=== PATIENT | male | born 1980 | race African-American/Black ===

== ENCOUNTER 2016-06-12 04:46 | Inpatient (IN) ==
[2016-06-03 10:42] LABS: Basophils % 0.4 % (0.0-0.8); Eosinophils # 0.1 10*3/uL (0.0-0.87); Eosinophils % 1.6 % (0.00-10.9); Hematocrit 41.3 VOL% (42.0-52.0); Hemoglobin 13.6 GM/DL (14.0-18.0); Immature Granulocytes % 0.4 %; Immature Granulocytes Absolute 0.02 #; Lymphocytes # 2.6 10*3/uL (1.4-4.0); Lymphocytes % 46.3 % (21.2-54.2); Mean Corpuscular HGB Conc 32.9 GM/DL (32-36); Mean Corpuscular Hemoglobin 26 PG (27-34); Mean Corpuscular Volume 79.3 FL (87-102); Monocytes # 0.6 10*3/uL (0.11-0.8); Monocytes % 10.8 % (1.7-12.7); Neutrophils # 2.3 10*3/uL (1.4-7.4); Neutrophils % 40.5 % (38.7-73.9); Platelet Count 198 T/CUMM (130-400); Red Blood Count 5.21 MC/CUMM (3.8-5.5); Red Cell Distribution Width 15.8 % (9.3-17.3); White Blood Count 5.6 T/CUMM (4-12)
[2016-06-03 10:52] LABS: INR 1.1; PT Patient Result 11.5 SECS; Partial Thromboplastin Time 28.3 SECS (0-40)
--- NOTE | 2016-06-03 10:54 | EKG Report ---
Stationary ECG Study [facility] Test Date: 06/03/2016 10:53:37 AM Pat Name: PANCHO WANG Department: Room: Gender: M Primary Special Education Teacher: NEEL VASQUEZ [birth year] : 1980 Requested by: Erick Kan Order Number: [id number] Reading MD: THOM PACHECO Intervals [place] Rate: 65 P: 60 CA: 138 QRS: 30 QRSD: 90 T: -57 QT: 384 QTc: 396 Interpretive Statements SINUS RHYTHM LEFT VENTRICULAR HYPERTROPHY AND ST-T CHANGE POSSIBLE INFERIOR MYOCARDIAL INFARCTION, OF INDETERMINATE AGE Electronically Signed On 06-03-16 16:57:07 CDT by THOM PACHECO [id number]
[2016-06-03 11:01] LABS: Albumin 3.8 G/DL (3.4-5.0); Bilirubin,Total 0.4 MG/DL (0.2-1.0); Osmolality,Calculated 276.4 MOS/KG (273-304); Potassium 3.9 MMOL/L (3.5-5.1); Total Protein 7.2 G/DL (6.4-8.3)
[2016-06-03 11:08] LABS: Apearance,Urine CLEAR (Clear); Bilirubin,Urine Negative (Negative); Blood, Urine Negative (Negative); Glucose,Urine (UA) Negative (Negative); Ketones,Urine 5 mg/dL (Negative); Mucus,Urine Occasional /LPF (Occasional); Nitrite,Urine Negative (Negative); Protein,Urine Negative; RBC,Urine <1 /HPF (0-4); Squamous Epithelial Cell,Urine Occasional /HPF (0-10); Urine Specific Gravity 1.024 (1.001-1.035); Urine Urobilinogen < 2.0 EU/DL (0.2-1.0); WBC,Urine 1 /HPF (0-6)
[2016-06-03 11:09] LABS: Urine Color Dark yellow (Yellow)
--- NOTE | 2016-06-03 13:16 | XRay Report ---
XR chest 2V Indication: Preop Comparison: None. Technique: PA and lateral chest x-ray was performed. Findings: The heart size is within normal limits. The mediastinal contour demonstrates no significant abnormality. The lungs are clear. Bones and soft tissues demonstrate no acute abnormality. Impression: 1. No active cardiopulmonary disease. 06/03/2016 1:14 PM PROCEDURE INTERPRETED AT [facility] DEPARTMENT OF RADIOLOGY Final Report Signed by: Dr. José Miguel Barrios
[2016-06-12] MEDS ORDERED: ceFAZolin 1,000 MG VIAL ONE (05:49)
[2016-06-12] MEDS ORDERED: VANCOMYCIN 1,000 MG VIAL ONE (05:49)
[2016-06-12] MEDS ORDERED: SODIUM CHLORIDE 0.9% 100 ML IV ONE (05:49)
[2016-06-12] MEDS ORDERED: VANCOMYCIN INJ 1,000 MG in SODIUM CHLORIDE 0.9% 250 ML IV ONE ×2 (06:00→18:54)
--- NOTE | 2016-06-12 06:38 | History and Physical Update ---
History and Physical Update - History and Physical H&P was reviewed, the patient examined and there: are no changes in the patients condition since last H&P was completed.
[2016-06-12] MEDS ORDERED: FAMOTIDINE 20 MG TABLET PO ONE (06:59)
[2016-06-12] MEDS ORDERED: DIAZEPAM 5 MG TABLET PO ONE (06:59)
[2016-06-12] MEDS ORDERED: LACTATED RINGERS 1,000 ML IV SCH (07:00)
[2016-06-12] MEDS ORDERED: FAMOTIDINE 20 MG TABLET ONE (07:40)
[2016-06-12] MEDS ORDERED: DIAZEPAM 5 MG TABLET ONE (07:40)
[2016-06-12] MEDS ORDERED: BACITRACIN OINT 0.9 GM PACK TOP ONE (08:47)
[2016-06-12] MEDS ORDERED: TRANEXAMIC ACID 1,000 MG/10 ML VIAL IV ONE (08:55)
[2016-06-12] MEDS ORDERED: PROPOFOL 200 MG/20 ML VIAL IV ONE (09:08)
[2016-06-12] MEDS ORDERED: LIDOCAINE 100 MG/5 ML SYRINGE ONE (09:08)
[2016-06-12] MEDS ORDERED: AMITRIPTYLINE 50 MG TABLET PO PRN (10:51)
[2016-06-12] MEDS ORDERED: diphenhydrAMINE CAP 25 MG CAPSULE PO PRN (10:52)
[2016-06-12] MEDS ORDERED: oxyCODONE IR 5 MG TABLET PO PRN (10:52)
[2016-06-12] MEDS ORDERED: MAGNESIUM HYDROXIDE SUSP 30 ML UDCUP PO PRN (10:52)
[2016-06-12 10:53] LABS: Apearance,Urine CLEAR (Clear); Bilirubin,Urine Negative (Negative); Blood, Urine Negative (Negative); Glucose,Urine (UA) Negative (Negative); Ketones,Urine Negative (Negative); Mucus,Urine Occasional /LPF (Occasional); Nitrite,Urine Negative (Negative); Protein,Urine Negative; RBC,Urine 1 /HPF (0-4); Squamous Epithelial Cell,Urine Occasional /HPF (0-10); Urine Color Straw (Yellow); Urine Urobilinogen < 2.0 EU/DL (0.2-1.0); WBC,Urine <1 /HPF (0-6)
--- NOTE | 2016-06-12 11:07 | Operative Note ---
Date of procedure: 06/12/16 Procedure: DIAGNOSIS: Left hip avascular necrosis PROCEDURE: Left total hip arthroplasty (CPT#65110) SURGEON: Jarocho ASST: Aleks Bull ANESTHESIA: Spinal PROCEDURE and FINDINGS: After adequate anesthesia was induced, the patient was placed in lateral decubitus position. Left lower extremities prepped and draped in usual sterile fashion. Posteriolateral approach to the hip was made. Skin, subcutaneous tissue and deep fascia was incised longitudinally. Gluteus msita muscle belly was split in line with its fibers. Piriformis, external rotators and capsule were taken down as a single layer as an inverted L shaped capsulotomy. Hip was dislocated. Templated femoral neck cut was made. Acetabulum was prepared by sequentially reaming to 53 mm. A 54 mm Continuum acetabular shell was press-fit with excellent stability. 1 6.5 millimeter screw was placed with an excellent bite. 32 mm elevated Longevity liner was placed with a dome hole plug. Femur was prepared sequentially with the box osteotome, canal finder and sequential broaches to 12. Components were trialed. A size 12 Versys fiber metal tapered stem was press-fit. A 32+0 mm head was placed. The component was stable posteriorly and anteriorly. Capsule and external rotators were repaired with #5 Tycron. Deep fascia was closed with 0 Vicryl uolqyp-zz-rnpcy suture. Subcutaneous tissue was closed deep with a 2-0 Vicryl runner and superficially with 3-0 interrupted buried sutures. Skin was closed with italia. Bacitracin and a sterile occlusive dressing was applied. Surgeon / Physician: Erick Avendaño Jr. Results - Labs CBC & BMP: 06/03/16 10:36 06/03/16 10:36 Discharge Plan - Discharge Medications No Action Amitriptyline [Elavil] 50 mg PO BEDTIME PRN PRN Reason: Sleep Gabapentin [Gabapentin] 1 tablet PO TID Tramadol HCl [Tramadol HCl] 1 tablet PO DIRECTED Meloxicam 15 mg PO DIRECTED - Follow Up or Referral - Forms/Instructions
[2016-06-12] MEDS ORDERED: MIDAZOLAM 2 MG/2 ML VIAL ONE (11:10)
[2016-06-12] MEDS ORDERED: fentaNYL 100 MCG/2 ML VIAL ONE (11:11)
[2016-06-12] MEDS ORDERED: ACETAMINOPHEN 1,000 MG/100 ML VIAL IV ONE (11:11)
[2016-06-12] MEDS: MORPHINE 2 MG/1 ML SYRINGE IV PRN ×2 (13:32→14:47)
[2016-06-12] MEDS ORDERED: MORPHINE 2 MG/1 ML SYRINGE IV ONE (14:39)
[2016-06-12] MEDS ORDERED: NALOXONE 0.4 MG/ML VIAL IV PRN (14:39)
--- NOTE | 2016-06-12 14:42 | Orthopedic Progress Note ---
Orthopedics - Subjective Interval history: Mr Márquez is uncomfortable and complaining of pain. Left lower extremity shows that his dressing is clean, dry and intact. His left lower extremities neurovascularly unchanged. Plan: Bolus morphine 1 now and add a morphine [employer]. Exam - Constitutional Vitals: Period Temp Pulse Resp BP Sys/Fofana Pulse Ox Last 24 Hr 97.4 F-98.1 F 47-57 16-20 99-126/68-91 98-100 Results - Labs CBC & BMP: 06/03/16 10:36 06/03/16 10:36
[2016-06-12] MEDS: KETOROLAC 30 MG/1 ML VIAL IV SCH ×3 (14:44→20:23)
--- NOTE | 2016-06-12 14:53 | XRay Report ---
XR hip 1V LT Indication: Arthroplasty Comparison: 13 January 2016 Findings: Arthroplasty alignment appears within normal limits. No periprosthetic fracture seen. Impression: Hip arthroplasty as described above. PROCEDURE INTERPRETED AT [facility] DEPARTMENT OF RADIOLOGY Final Report Signed by: Dr. Loki Bain
[2016-06-12] MEDS ORDERED: MORPHINE PCA 30 MG/30 ML SYRINGE IV SCH (15:00)
--- NOTE | 2016-06-12 16:37 | Anesthesia Post-Op ---
Anesthesia Post OP - Post Ansesthetic Evaluation Patient seen in post op: Yes Resp: within normal limits CV: within normal limits Mental: within normal limits Temp: within normal limits [id number]-Ylwqovtmj: within normal limits Nausea and Vomiting: within normal limits Pain: within normal limits
[2016-06-12] MEDS: ceFAZolin 2,000 MG in PREMIX 1 EACH IV SCH ×2 (17:26→21:58)
[2016-06-12] MEDS: LACTATED RINGERS 1,000 ML IV SCH ×2 (17:32→21:38)
[2016-06-12] MEDS: ACETAMINOPHEN 500 MG TABLET PO SCH ×2 (19:36→20:27)
[2016-06-12] MEDS: GABAPENTIN 300 MG CAPSULE PO SCH ×2 (19:37→20:26)
[2016-06-12] MEDS: DOCUSATE SODIUM 100 MG CAPSULE PO SCH (20:27)
[2016-06-13] MEDS: KETOROLAC 30 MG/1 ML VIAL IV SCH (02:09)
[2016-06-13] MEDS: ACETAMINOPHEN 500 MG TABLET PO SCH ×2 (02:12→09:06)
[2016-06-13] MEDS: FONDAPARINUX 2.5 MG/0.5 ML SYRINGE SUBCUT SCH (04:23)
[2016-06-13] MEDS: LACTATED RINGERS 1,000 ML IV SCH (06:12)
[2016-06-13 06:14] LABS: Basophils % 0.2 % (0.0-0.8); Eosinophils # 0.1 10*3/uL (0.0-0.87); Eosinophils % 1.1 % (0.00-10.9); Hematocrit 34.6 VOL% (42.0-52.0); Hemoglobin 11.5 GM/DL (14.0-18.0); Immature Granulocytes % 0.5 %; Immature Granulocytes Absolute 0.04 #; Lymphocytes # 2.2 10*3/uL (1.4-4.0); Lymphocytes % 26.4 % (21.2-54.2); Mean Corpuscular HGB Conc 33.2 GM/DL (32-36); Mean Corpuscular Hemoglobin 26 PG (27-34); Mean Corpuscular Volume 77.8 FL (87-102); Mean Platelet Volume 11.1 FL (9.6-12.0); Monocytes % 11.8 % (1.7-12.7); Platelet Count 159 T/CUMM (130-400); Red Blood Count 4.45 MC/CUMM (3.8-5.5); Red Cell Distribution Width 15.5 % (9.3-17.3); White Blood Count 8.3 T/CUMM (4-12)
[2016-06-13 06:51] LABS: Calcium 8.9 MG/DL (8.5-10.1); Osmolality,Calculated 277.4 MOS/KG (273-304); Potassium 3.5 MMOL/L (3.5-5.1)
--- NOTE | 2016-06-13 07:36 | Orthopedic Progress Note ---
Orthopedics - Subjective Interval history: Comfortable. Mr. Márquez would like the Dean out. Dressing moderate serosanguineous drainage. Left lower extremity neurovascularly intact. Plan: Mobilize with physical therapy. Discontinue IV fluids, STEMHOLE BORER AND TOPPER and Dean catheter. Hold Arixtra for wound drainage. Exam - Constitutional Vitals: Period Temp Pulse Resp BP Sys/Fofana Pulse Ox Last 24 Hr 97.4 F-100.2 F 47-96 16-20 99-151/68-94 97-100 Results - Labs CBC & BMP: 06/13/16 05:03 06/13/16 05:03
[2016-06-13] MEDS: GABAPENTIN 300 MG CAPSULE PO SCH ×3 (09:05→22:38)
[2016-06-13] MEDS: DOCUSATE SODIUM 100 MG CAPSULE PO SCH ×2 (09:06→22:39)
[2016-06-13] MEDS: oxyCODONE IR 5 MG TABLET PO PRN ×2 (14:04→19:12)
[2016-06-13] MEDS: CELECOXIB 200 MG CAPSULE PO SCH (15:54)
[2016-06-13] MEDS: MORPHINE 2 MG/1 ML SYRINGE IV PRN (22:39)
[2016-06-14] MEDS ORDERED: KETOROLAC 30 MG/1 ML VIAL IV ONE (00:24)
[2016-06-14 01:01] LABS: Basophils % 0.2 % (0.0-0.8); Eosinophils # 0.1 10*3/uL (0.0-0.87); Eosinophils % 1.2 % (0.00-10.9); Hemoglobin 11.9 GM/DL (14.0-18.0); Immature Granulocytes % 0.6 %; Immature Granulocytes Absolute 0.06 #; Lymphocytes # 2.2 10*3/uL (1.4-4.0); Lymphocytes % 21.9 % (21.2-54.2); Mean Corpuscular Hemoglobin 26 PG (27-34); Mean Corpuscular Volume 76.8 FL (87-102); Mean Platelet Volume 10.8 FL (9.6-12.0); Monocytes # 1.1 10*3/uL (0.11-0.8); Monocytes % 10.7 % (1.7-12.7); Neutrophils # 6.5 10*3/uL (1.4-7.4); Neutrophils % 65.4 % (38.7-73.9); Platelet Count 166 T/CUMM (130-400); Red Blood Count 4.56 MC/CUMM (3.8-5.5); Red Cell Distribution Width 15.3 % (9.3-17.3); White Blood Count 9.9 T/CUMM (4-12)
[2016-06-14 01:17] LABS: Troponin I Only < 0.015 NG/ML (0.00-0.045)
[2016-06-14] MEDS: oxyCODONE IR 5 MG TABLET PO PRN (04:09)
--- NOTE | 2016-06-14 05:28 | Event Note ---
Night hospitalist brief rapid response note Responded to heart alert paged overhead to Mr. Márquez. He had complained of some chest discomfort. Upon my arrival he was lying in bed with appropriate mentation and stable vital signs. Noted that he is in the hospital for a hip procedure. EKG personally reviewed without ST elevation [place], he does have some benign early repolarization. Chest x-ray unremarkable. Upon questioning the patient sounds like he complains more of indigestion with a pressure in his chest that makes him feel like he needs to burp. He has no significant risk factors for coronary disease. Remain on the floor with remote cardiac monitoring. Maalox for indigestion. Toradol shot given for hip discomfort.
--- NOTE | 2016-06-14 08:02 | Orthopedic Progress Note ---
Orthopedics - Subjective Interval history: Mr. Márquez is currently comfortable and has no complaints. He is standing and working with physical therapy. He was seen during the event coordinator by the night hospitalist for possible chest discomfort which was felt to be indigestion. His dressing has mild to moderate serosanguineous drainage. It is much less than yesterday. He is neurovascularly intact. He is currently working very well with physical therapy. Continue physical therapy. Start Arixtra tomorrow. Encouraged protein intake. Probable transfer to [facility] tomorrow. Exam - Constitutional Vitals: Period Temp Pulse Resp BP Sys/Fofana Pulse Ox Last 24 Hr 98.1 F-98.7 F 75-98 18-20 122-145/82-94 96-99 Results - Labs CBC & BMP: 06/14/16 00:37 06/13/16 05:03
[2016-06-14] MEDS: CELECOXIB 200 MG CAPSULE PO SCH (08:28)
[2016-06-14] MEDS: GABAPENTIN 300 MG CAPSULE PO SCH ×3 (08:29→21:39)
[2016-06-14] MEDS: DOCUSATE SODIUM 100 MG CAPSULE PO SCH ×2 (08:29→21:39)
--- NOTE | 2016-06-14 08:58 | EKG Report ---
Stationary ECG Study [facility] Test Date: 06/14/2016 12:20:58 AM Pat Name: PANCHO WANG Department: Room: 319 Gender: M Unix Engineer: : 1980 Requested by: Griffin Quintero Order Number: [id number] Reading MD: SALENA GARCIA Intervals [place] Rate: 75 P: 53 MO: 154 QRS: 25 QRSD: 104 T: 30 QT: 363 QTc: 392 Interpretive Statements SINUS RHYTHM At 75 bpm NONSPECIFIC T-WAVE ABNORMALITY Electronically Signed On 06-15-16 16:49:46 CDT by SALENA GARCIA [email or web address]
--- NOTE | 2016-06-14 09:17 | XRay Report ---
Referring Physician: Griffin Delaney MD Exam: XR chest 1V portable Date: June 14, 2016 at 12:11 AM Reason: Chest pain Comparison: Chest 2 views June 03, 2016 Findings: The cardiac silhouette is normal in size. There is minimal atelectasis within the left midlung zone. No pneumothorax or pleural effusion is identified. No acute osseous process is seen. Impression: Minimal atelectasis within the left midlung zone. PROCEDURE INTERPRETED AT [facility] DEPARTMENT OF RADIOLOGY Final Report Signed by: Dr. Arthur Batres
[2016-06-15 06:42] LABS: Basophils % 0.3 % (0.0-0.8); Eosinophils # 0.2 10*3/uL (0.0-0.87); Eosinophils % 2.5 % (0.00-10.9); Hematocrit 35.5 VOL% (42.0-52.0); Hemoglobin 11.6 GM/DL (14.0-18.0); Immature Granulocytes % 0.6 %; Immature Granulocytes Absolute 0.05 #; Lymphocytes # 2.3 10*3/uL (1.4-4.0); Lymphocytes % 29.4 % (21.2-54.2); Mean Corpuscular HGB Conc 32.7 GM/DL (32-36); Mean Corpuscular Hemoglobin 26 PG (27-34); Mean Corpuscular Volume 78.9 FL (87-102); Mean Platelet Volume 11.1 FL (9.6-12.0); Monocytes # 0.9 10*3/uL (0.11-0.8); Monocytes % 11.6 % (1.7-12.7); Neutrophils # 4.3 10*3/uL (1.4-7.4); Neutrophils % 55.6 % (38.7-73.9); Platelet Count 171 T/CUMM (130-400); Red Cell Distribution Width 15.8 % (9.3-17.3); White Blood Count 7.7 T/CUMM (4-12)
--- NOTE | 2016-06-15 08:48 | Discharge Summary ---
Hospital Course - Hospital Course Hospital Course: Mr. Márquez was admitted after undergoing an uncomplicated left total hip arthroplasty for avascular necrosis. He received perioperative DVT and antimicrobial prophylaxis. He received physical therapy. 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 His dressing today is clean, dry and intact. His left lower extremities neurovascularly intact. Discharge Plan - Discharge Data Disposition: Disch/Xfer to Snf Condition at Discharge: Stable Discharge Diet: advance to your usual diet Hygiene: may shower Weight Bearing at Discharge: weight bear as tolerated Driving: not until seen by doctor - Discharge Medications New Celecoxib [Celebrex] 200 mg PO DAILY capsule Docusate Sodium Cap [Colace Cap] 100 mg PO BID capsule Fondaparinux [Arixtra] 2.5 mg SUBCUT Q24H syringe HYDROcodone/ACETAMIN 7.5-325 [[place] 7.5-325] 2 tablet PO Q4H PRN #0 tablet PRN Reason: Moderate Pain unrelieved by 1 HYDROcodone/ACETAMIN 7.5-325 [[place] 7.5-325] 1 tablet PO Q4H PRN #0 tablet PRN Reason: Pain Moderate (4-7) Continue Amitriptyline [Elavil] 50 mg PO BEDTIME PRN PRN Reason: Sleep Gabapentin 300 mg PO TID No Action Tramadol HCl [Tramadol HCl] 1 tablet PO Q8H PRN PRN Reason: Pain Meloxicam 15 mg PO DAILY - Follow Up or Referral - Forms/Instructions Additional Discharge Instructions: Posterior hip precautions for 3 months. Daily dry dressing changes. Arrange for walker and bedside commode for home use. Wear TERRA hose for 1 month. Follow-up appointment in 4 weeks. Discontinue italia and Steri-Strip wound on June 24, 2016. Prescription for [place] 7.5 with 30 tablets was written. Stop Arixtra when discharged from [facility], then take aspirin 325 mg by mouth daily for 14 day. Exam - Constitutional Vitals: Period Temp Pulse Resp BP Sys/Fofana Pulse Ox Last 24 Hr 97.7 F-99.7 F 79-94 16-20 125-156/76-95 96-100 Discharge Results Labs on day of discharge: Labs from last 24 hours 06/15/16 05:16 WBC 7.7 RBC 4.50 Hgb 11.6 L Hct 35.5 L MCV 78.9 L MCH 26 L MCHC 32.7 RDW 15.8 Plt Count 171 MPV 11.1 Neut % (Auto) 55.6 Lymph % (Auto) 29.4 Mathews % (Auto) 11.6 Eos % (Auto) 2.5 Baso % (Auto) 0.3 Neut # (Auto) 4.3 Lymph # (Auto) 2.3 Mathews # (Auto) 0.9 H Eos # (Auto) 0.2 Baso # (Auto) 0.0 Immature Gran % 0.6 Nucleated RBC % 0.0 Immature Gran # 0.05 Nucleated RBCs # 0.00 DS: Provider Date of admission: 06/12/16 04:46 Primary care physician: Erick Avendaño Jr., Attending physician on admission: Erick Avendaño Jr., Consults: 06/12/16 10:53 Consult to Case Mgmt/Social Srvs [CONS] Routine Reason for Case Mgmt/Social Srvs: Rehab Home Health Equipment Consult Comment: Bedside Commode, CPM, Walker Consult to Occupational Therapy [CONS] Routine Reason for Occupational Therapy: Evaluate and Treat Consult Comment: ADL's Consult to Physical Therapy [CONS] Routine Reason for Physical Therapy: Evaluate and Treat Gait Training Start Therapy: Today Consult Comment: wbat, hip precautions Discharging clinician: Erick Avendaño Jr., Expected date of discharge: 06/15/16
[2016-06-15] MEDS: DOCUSATE SODIUM 100 MG CAPSULE PO SCH ×2 (09:06→21:48)
[2016-06-15] MEDS: CELECOXIB 200 MG CAPSULE PO SCH (09:06)
[2016-06-15] MEDS: GABAPENTIN 300 MG CAPSULE PO SCH ×3 (09:06→21:47)
--- NOTE | 2016-06-15 11:26 | Pathology Report from [facility] ---
ACCESSION # : [id number] PATIENT NAME : Pancho Wang ORDERING DR : RUBY VASQUEZ MD CLINICAL HX: Avascular necrosis left hip POST-OP DX: Same SPECIMEN INFO: Left hip bone and tissue GROSS DESCRIPTION: The specimen is received in formalin labeled with the patient 's name and consists of a femoral head measuring 4.8 x 4.8 x 2.6 cm. The articular surface is predominately smooth and red-hopkins with no subchondral eburnation seen. Cut surface is firm with no softening appreciated. Received separately in the container are multiple fragments of bone and cartilage measuring 10.0 x 3.0 cm. Assessment Technician tissue submitted in one cassette following decalcification. DIAGNOSIS FOR PANCHO WANG: FEMORAL HEAD, LEFT: Consistent with avascular necrosis. SERVICE DATE: 06/12/2016 REPORT DATE: 06/15/2016 PATHOLOGIST: Guilherme Magallanes III, M.D. MTDD
[2016-06-15] MEDS ORDERED: BISACODYL 10 MG SUPP RECTAL PRN (11:48)
[2016-06-15] MEDS: MORPHINE 2 MG/1 ML SYRINGE IV PRN (18:29)
[2016-06-16] MEDS: FONDAPARINUX 2.5 MG/0.5 ML SYRINGE SUBCUT SCH (05:00)
--- NOTE | 2016-06-16 07:13 | Orthopedic Progress Note ---
Orthopedics - Subjective Interval history: Comfortable. Is currently waiting on insurance approval for TMR. Scant serosanguineous drainage from incision. Neurovascularly unchanged. Plan: Waiting for insurance approval. Continue with therapy. Exam - Constitutional Vitals: Period Temp Pulse Resp BP Sys/Fofana Pulse Ox Last 24 Hr 98.0 F-99.7 F 72-96 16-20 121-144/73-91 96-99 Results - Labs CBC & BMP: 06/15/16 05:16 06/13/16 05:03 Specialty Discharge - Follow Up or Referrals Follow up with: Erick Avendaño Jr., MD [Primary Care Provider] - 07/02/16 1:00 pm
[2016-06-16] MEDS: DOCUSATE SODIUM 100 MG CAPSULE PO SCH (09:27)
[2016-06-16] MEDS: GABAPENTIN 300 MG CAPSULE PO SCH (09:27)
[2016-06-16] MEDS: CELECOXIB 200 MG CAPSULE PO SCH (09:28)
[2016-06-16 11:28] VITALS: BP 153/94
== END 2016-06-16 13:45 | DRG 301 ==
LOC: N.SDSINP 04:46 → N.3E 12:08
PROVIDERS: ADMIT Orthopaedic Surgery; ATTEND Orthopaedic Surgery